=== PATIENT | male | born 1990 | race African-American/Black ===

== ENCOUNTER 2021-07-20 16:31 | Emergency (ER) | payer OTHER ==
[2021-07-20 16:44] VITALS: BP 143/99; PULSE 83; TEMP 98; BMI 30.5
== END 2021-07-20 19:18 | disposition home or self-care (01) ==
LOC: JCOVINFU 16:31 → JER 16:31
DX: B34.9 Viral infection, unspecified (principal)
CPT/HCPCS: 71046-TC-FY; 99284-25; C9803; U0003; U0005

== ENCOUNTER 2022-05-27 16:45 | Emergency (ER) | payer OTHER ==
[2022-05-27 16:50] VITALS: BP 144/93; PULSE 95; RESP 20; TEMP 98.3; BMI 31.8
== END 2022-05-27 19:10 | disposition home or self-care (01) ==
LOC: JERFT 16:45 → JER 16:45 → JERFT 19:10
PROC: 0HQGXZZ Repair Left Hand Skin, External Approach (ICD-10-PCS; principal; 2022-05-27)
DX: S61.215A Laceration without foreign body of left ring finger without damage to nail, initial encounter (principal); W26.0XXA Contact with knife, initial encounter
CPT/HCPCS: 99282-25

== ENCOUNTER 2022-06-07 12:27 | Emergency (ER) | payer OTHER ==
[2022-06-07 12:33] VITALS: BP 141/86; PULSE 100; RESP 18; TEMP 98; BMI 31.1
== END 2022-06-07 13:11 | disposition home or self-care (01) ==
LOC: JERFT 12:27
DX: S61.213A Laceration without foreign body of left middle finger without damage to nail, initial encounter (principal); Y99.9 Unspecified external cause status; Z48.02 Encounter for removal of sutures
CPT/HCPCS: 99281-25